=== PATIENT | female | born 1940 | race African-American/Black ===

== ENCOUNTER 2016-09-11 01:40 | Inpatient (IN) ==
[2016-09-11] MEDS ORDERED: ONDANSETRON 4 MG/2 ML VIAL IV PRN (02:31)
[2016-09-11] MEDS ORDERED: MORPHINE 2 MG/1 ML SYRINGE IV PRN (02:31)
[2016-09-11] MEDS ORDERED: BISACODYL 5 MG TABLET PO PRN (02:31)
--- NOTE | 2016-09-11 02:34 | Hospitalist History & Physical ---
Assessment and Plan (1) ESRD (end stage renal disease) on dialysis Status: Acute Current Visit: Yes (2) Diarrhea Status: Acute Current Visit: Yes (3) Metabolic encephalopathy Status: Acute Current Visit: Yes (4) Dementia Status: Acute Current Visit: Yes Qualifiers: Dementia type: unspecified type Dementia behavioral disturbance: without behavioral disturbance Qualified Code(s): F03.90 - Unspecified dementia without behavioral disturbance (5) Hypertension Status: Acute Current Visit: Yes Qualifiers: Hypertension type: essential hypertension Qualified Code(s): I10 - Essential (primary) hypertension (6) Generalized weakness Status: Acute Assessment and plan: Plan: Dialysis in the morning, consult nephrology Infectious workup for diarrhea CT brain negative for acute process in the setting of encephalopathy in addition to baseline dementia. If no improvement may consider MRI Hold antibiotics for now Current Visit: Yes History of Present Illness Chief complaint: Transfer from [facility] for dialysis, weakness, diarrhea History of present illness: Ms. Lal is a 75 year old female with end-stage renal disease on dialysis, Saturday via left upper extremity AV fistula, hypertension, dementia who is here from outside hospital with abdominal pain, diarrhea, decreased level of consciousness. Allergies Allergy/AdvReac Type Severity Reaction Status Date / Time No Known Allergies Allergy Unverified 09/11/16 02:44 Medical,Surgical,& Family Hx - Medical History Cardio: History of: Hypertension Neurology: History of: Dementia Endocrine: No history of: Diabetes Mellitus (NIDDM) Rheumatology: History of;: Gout Renal: History of: Renal Failure (End-stage renal disease on dialysis) - Surgical History Additional Surgical History: AV fistula placement - Family History Family History: Reports;: Family Hypertension - Social History Smoking Status: Never smoker Frequency of Alcohol Use: None Type of Drug Use: None Marital Status: Unknown Review of systems: A 12 point review of systems is negative except as specified in the HPI Exam - Constitutional Vitals: Period Temp Pulse Resp BP Sys/Gonzalez Pulse Ox Last 24 Hr 98.9 F 80 15 131/44 99 Exam: EXAM: CONSTITUTIONAL: Chronically ill-appearing, non toxic, NAD HEENT: NC, AT, OP benign, MAHNAZ, EOMI CV: RRR no m/g/r RESP: clear B/L, no w/r/r GI: abd soft, NT, ND, +bowel sounds INTEGUMENTARY: no lesions or rash EXTREMITIES: no c/c/e, AV fistula with good thrill and bruit NEURO: Consistent with baseline dementia PSYCH: Drowsy but arousable Results - Labs Lab Results: I have reviewed the past 24 hour labs (Outside labs reviewed) - EKG EKG shows: sinus rhythm - Diagnostic Findings Procedure: Chest x-ray: report reviewed by me, CT Abdomen and Pelvis: report reviewed by me, CT: report reviewed by me
--- NOTE | 2016-09-11 02:38 | Emergency Department Note ---
Vimal Hampton Brittany, am scribing for, and in the presence of, Beau Reynoso MD 02:09. Edgardo Hampton Charles R, MD, personally performed the services described in this documentation, ascribed by Audrey Celis in my presence, and it is both accurate and complete . Arrival - Arrival Chief Complaint: Altered Mental Status Stated Complaint: altered mental status ED Nursing Triage Note: pt family states pt has alzheimers but became more confused yesterday and just suddenly became unable to walk. generalized weakness, confusion and chronic diarrhea that she takes med for and family thought she was becoming constipated so they gave apple juice and triggered diarrhea again. Mode of Arrival: Stretcher Limitations: No Limitations Source: Patient, Family Time Seen by Provider: 09/11/16 01:54 - History of Present Illness HPI Narrative: This is a 75 y/o black female,who presents to the ED by EMS for further neurological evaluation. Her family states pt has a known Hx of dementia but yesterday she became more altered. Her family states pt has chronic diarrhea and was given "some pills by her doctor" and the diarrhea stopped. She states she started to think pt was constipated so she gave pt apple juice and the diarrhea started again. Pt's family reports they have noticed the pt to be more weak and have slurred speech. Pt's last dialysis Tx was 09/08/2016. No other complaints/pain in the ED at this time. Pt has a PMHx of dementia, HTN, renal failure and dialysis. Pt denies a surgical Hx. Pt denies a family medical Hx. Pt denies a social Hx. Onset (ago): day(s) (Started yesterday) Consistency: constant Severity: moderate Review of System - Review of System 12 point system: reviewed and no additional remarkable complaints except as stated - Review of System Constitutional: Present: weakness (Generalized weakness) Gastrointestinal: Present: diarrhea Neurological: Present: other (AMS, slurred speech) Medical,Surgical,& Family Hx - Medical History Cardio: History of: Hypertension Neurology: History of: Dementia Rheumatology: History of;: Gout Renal: History of: Renal Failure - Social History Smoking Status: Never smoker Frequency of Alcohol Use: None Type of Drug Use: None Exam Vital Signs: Vital Signs Temperature 98.9 F 09/11/16 01:45 Pulse Rate 80 09/11/16 01:45 Respiratory Rate 15 09/11/16 01:45 Blood Pressure 131/44 09/11/16 01:45 O2 Sat by Pulse Oximetry 99 09/11/16 01:45 - General General appearance: in no apparent distress, lethargic - Head Head exam: Present: atraumatic, normocephalic, normal inspection - Eye Eye exam: Present: other (Sunken orbits) - ENT ENT exam: Present: mucous membranes dry, TM's normal bilaterally, normal external ear exam - Neck Neck exam: Present: normal inspection, full ROM, trachea midline. Absent: tenderness, meningismus, lymphadenopathy, thyromegaly - Chest Chest inspection: Present: normal inspection, symmetric chest wall rise. Absent : tenderness, rash, abscess - Respiratory Respiratory exam: Present: rhonchi (Bilateral rhonchi) - Cardiovascular Cardiovascular exam: Present: regular rate, normal rhythm, murmur (2 out of 6 slight murmur ) - Abdominal Exam Abdominal exam: Present: soft, normal bowel sounds. Absent: distention, tenderness, guarding, rebound, rigidity - Rectal Exam Rectal exam: Present: deferred - Extremities Exam Extremities exam: Present: normal capillary refill, pedal edema (+2 pitting edema) - Back Exam Back exam: Present: normal inspection, full ROM. Absent: tenderness, muscle spasm, rashes - Neurological Exam Neurological exam: Present: oriented X3, CN II-XII intact. Absent: motor sensory deficit - Psychiatric Psychiatric exam: Present: normal affect, normal mood. Absent: depressed, agitated, anxious, flat affect, manic - Skin Skin exam: Present: warm, dry, intact, normal color. Absent: rash, cyanosis, diaphoresis, erythema, pallor, mottled Course - Consultations Consultation #1: Hospitalist will admit patient Time: 02:37 Results - Labs Lab Results: I have reviewed the patients labs Labs: All results reviewed from previous facility Disposition Clinical Impression: Altered mental status, Generalized weakness, ESRD (end stage renal disease) on dialysis, Lower extremity weakness, Chronic diarrhea Case discussed with: patient, patient's family Disposition: Still a Patient Condition: Stable Time of Disposition: 02:38
[2016-09-11] MEDS: HEPARIN 5,000 UNIT/1 ML VIAL SUBCUT SCH ×3 (04:23→20:24)
[2016-09-11 05:47] LABS: Basophils % 0.2 % (0.0-0.8); Hematocrit 29.6 VOL% (35.7-47.0); Hemoglobin 9.3 GM/DL (12.0-16.0); Immature Granulocytes % 0.9 %; Immature Granulocytes Absolute 0.11 #; Lymphocytes # 1.3 10*3/uL (1.4-4.0); Lymphocytes % 10.9 % (21.3-54.2); Mean Corpuscular HGB Conc 31.4 GM/DL (32-36); Mean Corpuscular Hemoglobin 34 PG (27-34); Mean Corpuscular Volume 107.2 FL (87-102); Mean Platelet Volume 11.5 FL (9.6-12.0); Monocytes # 1.1 10*3/uL (0.11-0.8); Monocytes % 8.8 % (1.7-12.7); Neutrophils # 9.5 10*3/uL (1.4-7.4); Neutrophils % 79.2 % (38.7-73.9); Platelet Count 141 T/CUMM (130-400); Red Blood Count 2.76 MC/CUMM (3.8-5.5); Red Cell Distribution Width 14.4 % (9.3-17.3)
[2016-09-11 06:30] LABS: Alanine Aminotransferase < 9 U/L (13-56); Albumin 2.5 G/DL (3.4-5.0); Alkaline Phosphatase 66 U/L (45-117); Aspartate Amino Transferase 15 U/L (0-37); Blood Urea Nitrogen 59 MG/DL (7-18); Calcium 9.7 MG/DL (8.5-10.1); Glucose 120 MG/DL (74-106); Magnesium 3.7 MG/DL (1.8-2.4); Osmolality,Calculated 300.1 MOS/KG (273-304); Potassium 5.3 MMOL/L (3.5-5.1); Sodium 142 MMOL/L (136-145); Thyroid Stimulating Hormone 0.857 uIU/ml (0.358-3.74); Total Protein 6.1 G/DL (6.4-8.3)
[2016-09-11] MEDS: DESITIN 4OZ/NYSTATIN 15 GRAM MIXTURE PASTE TOP SCH ×2 (08:05→20:24)
[2016-09-11] MEDS: PANTOPRAZOLE 40 MG TABLET PO SCH (08:05)
[2016-09-11 08:39] LABS: Folate 6.6 NG/ML (5.4-24.0)
[2016-09-11] MEDS ORDERED: LIDOCAINE/PRILOCAINE CREAM 5 GM TUBE TOP ONE ×2 (09:35→09:44)
[2016-09-11] MEDS ORDERED: IRON SUCROSE 100 MG/5 ML VIAL IV SCH (12:00)
--- NOTE | 2016-09-11 12:37 | Dialysis Note ---
Dialysis Note - Dialysis Note Ms. Lal is seen during her hemodialysis. She is not responsive. Her eyes are open but she does not interact at all. Blood pressure is stable. This is different than her usual mental status which is fairly quiet but able to answer simple questions.
--- NOTE | 2016-09-11 14:06 | Nephrology Consult Note ---
History of Present Illness Chief complaint: End-stage renal disease in a patient admitted for inability to ambulate History of present illness: Ms. Lal is a 75 year old female with end-stage renal disease who dialyzes on a Saturday basis and [facility]. The patient was brought to the outside hospital last night when she complained of some abdominal pain. Patient also had weakness in her legs and inability to ambulate. The history is taken from the chart and from the patient's daughter as the patient is unable to contribute to the history due to her poor mental health. Patient has known dementia and is on multiple medications for Alzheimer's. The patient apparently had been having problems with diarrhea chronically for about a month. This resolved about 2 months ago after she saw GI specialist and was started on some medications for this. Patient then had some abdominal pain yesterday and was given some medications to try and help with a bowel movement which apparently resulted in her developing diarrhea again. Review of systems unable be obtained due to patient's medical condition PE: General: in no acute distress Eyes: Pupils are round and reactive, conjunctivae are clear ENT: Nose is clear, O/P is benign Neck: Supple, no thyromegaly Lymphatics: No cervical, supraclavicular or axillary adenopathy Heart: Regular rate and rhythm, no edema Lungs: Clear to auscultation anteriorly, chest expansion symmetric Abdomen: Soft, normoactive bowel sounds, no hepatomegaly Musculoskeletal: No joint erythema or effusions or joint asymmetry Skin: Normal turgor, normal hydration, no rash Neuro/Psych: Alert and cooperative with poor insight Home Medications Medication Instructions Recorded Confirmed Type Calcium Carbonate [Calcium] 1,250 mg PO TID 09/11/16 09/11/16 History Diphenoxylate/Atrop 2.5-0.025 1 tablet PO Q6H PRN 09/11/16 09/11/16 History [Lomotil Tab] Donepezil [Aricept] 10 mg PO QPM 09/11/16 09/11/16 History Lisinopril 5 mg PO DAILY 09/11/16 09/11/16 History Megestrol Acetate [Megace] 400 mg PO DAILY 09/11/16 09/11/16 History Memantine HCl [Namenda XR] 14 mg PO DAILY 09/11/16 09/11/16 History amLODIPine [Norvasc] 10 mg PO DAILY 09/11/16 09/11/16 History Allergies Allergy/AdvReac Type Severity Reaction Status Date / Time No Known Allergies Allergy Unverified 09/11/16 02:44 Medical,Surgical,& Family Hx - Medical History Cardio: History of: Hypertension Neurology: History of: Dementia, TIA Endocrine: No history of: Diabetes Mellitus (NIDDM) Rheumatology: History of;: Gout Renal: History of: Renal Failure (End-stage renal disease on dialysis) Musculoskeletal: History of: Musculoskeletal Problems (Bedfast) - Surgical History Neurologic Surgeries: Patient denies: Neurologic Surgery - Family History Family History: Reports;: Family Hypertension, Additional Family History ( Family kidney disease) - Social History Smoking Status: Never smoker Frequency of Alcohol Use: None Type of Drug Use: None Exam - Vital Signs Vital signs: Period Temp Pulse Resp BP Sys/Gonzalez Pulse Ox Last 24 Hr 97.0 F-98.9 F 65-80 15-24 114-131/44-50 96-99 Results - Labs CBC & BMP: 09/11/16 05:13 09/11/16 05:13 Assessment and Plan (1) ESRD (end stage renal disease) on dialysis Status: Acute Assessment and plan: We will continue hemodialysis support Current Visit: Yes (2) Anemia Status: Acute Assessment and plan: Patient's hematocrits around 29% Current Visit: Yes (3) Dementia Status: Acute Current Visit: Yes Qualifiers: Dementia type: unspecified type Dementia behavioral disturbance: without behavioral disturbance Qualified Code(s): F03.90 - Unspecified dementia without behavioral disturbance (4) Diarrhea Status: Acute Assessment and plan: Patient had a CT scan of the abdomen that showed cholelithiasis and some diverticula, there was also noted some small right pleural effusion and small consolidation of the right lower lobe of the lung Current Visit: Yes (5) Generalized weakness Status: Acute Current Visit: Yes (6) Hypertension Status: Acute Current Visit: Yes Qualifiers: Hypertension type: essential hypertension Qualified Code(s): I10 - Essential (primary) hypertension (7) Lower extremity weakness Status: Acute Assessment and plan: Patient had a CT scan of her head which was unremarkable for any acute pathology , she does have diffuse changes consistent with chronic disease Current Visit: Yes (8) Hyperkalemia Status: Acute Current Visit: Yes
[2016-09-11] MEDS: CYANOCOBALAMIN 1000 MCG/1 ML VIAL SUBCUT SCH (14:43)
[2016-09-11] MEDS: CALCIUM CARBONATE CHEW 500 MG TABLET PO SCH ×2 (14:43→20:24)
[2016-09-11] MEDS: ACETAMINOPHEN 325 MG TABLET PO PRN (22:20)
[2016-09-12] MEDS: HEPARIN 5,000 UNIT/1 ML VIAL SUBCUT SCH ×3 (04:44→18:07)
[2016-09-12] MEDS: ACETAMINOPHEN 325 MG TABLET PO PRN (04:58)
[2016-09-12 05:11] LABS: Basophils % 0.2 % (0.0-0.8); Eosinophils % 0.4 % (0.00-10.9); Hematocrit 29.4 VOL% (35.7-47.0); Hemoglobin 9.3 GM/DL (12.0-16.0); Immature Granulocytes % 0.7 %; Immature Granulocytes Absolute 0.07 #; Lymphocytes # 1.4 10*3/uL (1.4-4.0); Lymphocytes % 14.5 % (21.3-54.2); Mean Corpuscular HGB Conc 31.6 GM/DL (32-36); Mean Corpuscular Hemoglobin 34 PG (27-34); Mean Corpuscular Volume 106.5 FL (87-102); Mean Platelet Volume 11.7 FL (9.6-12.0); Monocytes # 0.9 10*3/uL (0.11-0.8); Monocytes % 9.1 % (1.7-12.7); Neutrophils # 7.1 10*3/uL (1.4-7.4); Neutrophils % 75.1 % (38.7-73.9); Platelet Count 110 T/CUMM (130-400); Red Blood Count 2.76 MC/CUMM (3.8-5.5); Red Cell Distribution Width 14.6 % (9.3-17.3); White Blood Count 9.4 T/CUMM (4-12)
[2016-09-12 05:33] LABS: Calcium 9.1 MG/DL (8.5-10.1); Magnesium 3.1 MG/DL (1.8-2.4); Osmolality,Calculated 279.8 MOS/KG (273-304); Potassium 4.6 MMOL/L (3.5-5.1)
[2016-09-12] MEDS: CYANOCOBALAMIN 1000 MCG/1 ML VIAL SUBCUT SCH (09:24)
[2016-09-12] MEDS: MEGESTROL 400 MG/10 ML UDCUP PO SCH (09:25)
[2016-09-12] MEDS: DESITIN 4OZ/NYSTATIN 15 GRAM MIXTURE PASTE TOP SCH ×2 (09:25→22:15)
[2016-09-12] MEDS: PANTOPRAZOLE 40 MG TABLET PO SCH (09:25)
[2016-09-12] MEDS: CALCIUM CARBONATE CHEW 500 MG TABLET PO SCH ×3 (09:25→22:15)
--- NOTE | 2016-09-12 10:27 | XRay Report ---
Exam: XR chest 1V portable Date: 09/12/2016 9:59 AM Indication: Shortness of breath Comparison: 01/13/2013 Technical: AP portable Findings: Mild prominence the cardiac silhouette. There is a normal right IJ dialysis catheter. ASVD is present in the aorta. Low volume right effusion and interstitial infiltrate present in the LAD change in the right base. No pneumothorax. Small calcified nodular densities are present in the upper chest regions bilaterally. Impression: 1. Right lower lobe interstitial pneumonic infiltrate and/or low volume effusions. A component of asymmetric pulmonary edema would also be considered in the differential 2. Removal of dialysis catheter. 3. No pneumothorax PROCEDURE INTERPRETED AT [facility] DEPARTMENT OF RADIOLOGY Final Report Signed by: Dr. Savage Hdez
[2016-09-12] MEDS ORDERED: AZITHROMYCIN INJ 500 MG in SODIUM CHLORIDE 0.9% 250 ML IV ONE ×2 (12:30→14:00)
[2016-09-12] MEDS: cefTRIAXone 1,000 MG in SODIUM CHLORIDE 0.9% 100 ML IV SCH (13:01)
--- NOTE | 2016-09-12 13:14 | Nephrology Progress Note ---
Nephrology - PN: Subj Interval history: Patient is feeling better today. She denies shortness of breath. Review of systems GI she denies nausea or vomiting Physical exam general the patient chronically ill-appearing, she raised her left leg off the bed about 2 feet she raised her right foot about 4 inches off of the bed Assessment/plan 1. End-stage renal disease-we will continue hemodialysis support 2. Dementia 3. Lower extremity weakness-this seems to be improving, patient's to have an MRI of the brain today 4. Probable pneumonia-I agree with IV antibiotics, the patient had a temperature to 101.5 yesterday, with her decreased brain reserve this infectious process may be responsible for her current decline in functional status. Exam (PN)-Nephrology - Vital Signs Vital signs: Period Temp Pulse Resp BP Sys/Gonzalez Pulse Ox Last 24 Hr 98.7 F-101.3 F 62-79 17-18 100-120/47-61 91-96 - Lab 09/12/16 04:55 09/12/16 04:55 Most recent lab results Calcium 9.1 MG/DL (8.5-10.1) 09/12/16 04:55 Magnesium 3.1 MG/DL (1.8-2.4) H 09/12/16 04:55 Assessment and Plan (1) ESRD (end stage renal disease) on dialysis Status: Acute Assessment and plan: We will continue hemodialysis support Current Visit: Yes (2) Anemia Status: Acute Assessment and plan: Patient's hematocrits around 29% Current Visit: Yes (3) Dementia Status: Acute Current Visit: Yes Qualifiers: Dementia type: unspecified type Dementia behavioral disturbance: without behavioral disturbance Qualified Code(s): F03.90 - Unspecified dementia without behavioral disturbance (4) Diarrhea Status: Acute Assessment and plan: Patient had a CT scan of the abdomen that showed cholelithiasis and some diverticula, there was also noted some small right pleural effusion and small consolidation of the right lower lobe of the lung Current Visit: Yes (5) Generalized weakness Status: Acute Current Visit: Yes (6) Hypertension Status: Acute Current Visit: Yes Qualifiers: Hypertension type: essential hypertension Qualified Code(s): I10 - Essential (primary) hypertension (7) Lower extremity weakness Status: Acute Assessment and plan: Patient had a CT scan of her head which was unremarkable for any acute pathology , she does have diffuse changes consistent with chronic disease Current Visit: Yes (8) Hyperkalemia Status: Acute Current Visit: Yes
--- NOTE | 2016-09-12 15:05 | Magnetic Resonance Report ---
Exam: MR head/brain wo con Date: 09/12/2016 2:36 PM Comparison: CT brain 09/10/2016 Indication: Alteration of consciousness, weakness, dementia Technique:[Multiple acquisitions were obtained including sagittal T1, coronal T2,] and axial ADC, diffusion, FLAIR, T2, GRE, and T1 scans without contrast only. Scans were obtained on an open 1.2 Michelle magnet. Findings: The ventricles are minimally dilated with no midline displacement. Partially empty sella. The cerebellar tonsils are normal in their location. Diffuse cerebral and cerebellar atrophy with diffuse FLAIR/T2 hyperintensities. Restricted diffusion in the posterior limb of the left internal capsule extending into the left centrum semiovale location. No evidence of hemorrhage, mass, or extracerebral collection. No acute findings in the paranasal sinuses, orbits, temporal bones, and ch[place] of Dawn. Impression: Acute ischemic infarction in the posterior limb of the left internal capsule extending into the left centrum semiovale ovale. Extensive cerebral and cerebellar atrophy and microvascular disease. T2 hyperintensities can also be associated with demyelinating disease, vasculitis, viral illness, etc. Partially empty sella. PROCEDURE INTERPRETED AT [facility] DEPARTMENT OF RADIOLOGY Final Report Signed by: Dr. Laurel Aleman
--- NOTE | 2016-09-12 17:38 | Hospitalist Progress Note ---
Assessment and Plan (1) Altered mental status Status: Acute Assessment and plan: Improving Current Visit: Yes (2) Generalized weakness Status: Acute Current Visit: Yes (3) ESRD (end stage renal disease) on dialysis Status: Acute Current Visit: Yes (4) Lower extremity weakness Status: Acute Assessment and plan: MRI with acute stroke Carotid dopplers, echo, lipid panel Consult neurology History of strokes several years ago Current Visit: Yes (5) Hypertension Status: Acute Assessment and plan: Controlled Current Visit: Yes Qualifiers: Hypertension type: essential hypertension Qualified Code(s): I10 - Essential (primary) hypertension (6) Macrocytic anemia Status: Acute Assessment and plan: B12 low normal, replacing Current Visit: Yes (7) Pneumonia Status: Acute Assessment and plan: CXR with pna Rocephin and Azithromycin Current Visit: Yes Hospitalist: Subjective Interval history: No acute events overnight. Patient much more awake and alert today. Febrile overnight. MRI did show an acute infarct. Exam - Constitutional Vitals: Period Temp Pulse Resp BP Sys/Gonzalez Pulse Ox Last 24 Hr 98.7 F-101.3 F 61-79 17-18 102-136/47-62 91-98 General appearance: under weight, over weight - Head Head exam: Present: normocephalic, atraumatic - Eye Eye exam: Present: EOMI Pupils: Present: MAHNAZ - ENT ENT exam: Present: normal exam - Neck Neck exam: Present: normal inspection - Respiratory Respiratory exam: Present: clear to auscultation bilaterally. Absent: wheezes - Cardiovascular Cardiovascular exam: Present: regular rate and rhythm - GI/Abdominal GI/Abdominal exam: Present: normal bowel sounds, soft. Absent: tenderness, rebound - Extremities Exam Extremities exam: Present: normal inspection - Back Exam Back exam: Present: normal inspection - Neurological Exam Neurological exam: Present: alert, oriented X3 - Psychiatric Psychiatric exam: Present: normal affect, normal mood - Skin Skin exam: Present: warm, intact Results - Labs CBC & BMP: 09/12/16 04:55 09/12/16 04:55
--- NOTE | 2016-09-12 21:31 | Ultrasound Report ---
Exam: Carotid ultrasound Date: 09/12/2016 Comparison: 01/19/2013 Technique: Duplex scans of the carotid and vertebral arteries using B-mode/Bassett scale imaging and Doppler spectral analysis and color flow. Reason: CVA Findings: The right ICA measures 6.6 mm in diameter and the left ICA measures 5.2 mm in diameter. Color-flow documented in the visualized arteries. The peak systolic velocities are as follows: Right CCA: 135.1 cm/s Right ICA: 72.7 cm/s Right ECA: 92.7 cm/s Left CCA: 148.5 cm/s Left ICA: 45.7 cm/s Left ECA: 65.3 cm/s The peak systolic ICA/CCA velocity ratios are as follows: 0.5 on the right and 0.3 on the left. Antegrade flow is present in both vertebral arteries. Impression:[Less than 50% stenosis in both internal carotid arteries with heterogeneous plaque formation. Antegrade flow in both vertebral arteries.] The Society of Radiologists in Ultrasound consensus conference criteria was used. The Ultrasound images were captured and stored. PROCEDURE INTERPRETED AT [facility] DEPARTMENT OF RADIOLOGY Final Report Signed by: Dr. Laurel Aleman
[2016-09-13] MEDS: HEPARIN 5,000 UNIT/1 ML VIAL SUBCUT SCH ×3 (03:13→18:15)
[2016-09-13 06:05] LABS: Risk Ratio 6.11; VLDL CHOLESTEROL 25.2 MG/DL
[2016-09-13] MEDS: CALCIUM CARBONATE CHEW 500 MG TABLET PO SCH ×3 (08:36→21:56)
--- NOTE | 2016-09-13 08:36 | Neurology Consult Note ---
History of Present Illness History of present illness: 75 years old right-handed -[place] lady with past medical history significant for end-stage renal disease on hemodialysis history of left AV fistula, hypertension, dementia who lives at home with her daughter admitted to the hospital with acute onset of change in mental status, generalized weakness and some speech difficulties. Daughter reported that it started Saturday morning and she noticed that her mom was just not being right. She could not give me any details. Daughter could not figure it out but that she had any focal weakness are not but she just thought that she had generalized weakness. She could not move or do anything. At the baseline she does require help in walking but does sound like a min assist. At the present time she is requiring mod to max assist. She can swallow though. MRI of the brain reveals subacute to acute left posterior limb internal capsule and centrum semiovale infarct. Carotid ultrasound and lipid panel are all within normal limits. Home Medications Medication Instructions Recorded Confirmed Type Calcium Carbonate [Calcium] 1,250 mg PO TID 09/11/16 09/11/16 History Diphenoxylate/Atrop 2.5-0.025 1 tablet PO Q6H PRN 09/11/16 09/11/16 History [Lomotil Tab] Donepezil [Aricept] 10 mg PO QPM 09/11/16 09/11/16 History Lisinopril 5 mg PO DAILY 09/11/16 09/11/16 History Megestrol Acetate [Megace] 400 mg PO DAILY 09/11/16 09/11/16 History Memantine HCl [Namenda XR] 14 mg PO DAILY 09/11/16 09/11/16 History amLODIPine [Norvasc] 10 mg PO DAILY 09/11/16 09/11/16 History Allergies Allergy/AdvReac Type Severity Reaction Status Date / Time No Known Allergies Allergy Unverified 09/11/16 02:44 12 point system: reviewed and no additional remarkable complaints except as stated Medical,Surgical,& Family Hx - Medical History Cardio: History of: Hypertension Neurology: History of: Dementia, TIA Endocrine: No history of: Diabetes Mellitus (NIDDM) Rheumatology: History of;: Gout Renal: History of: Renal Failure (End-stage renal disease on dialysis) Musculoskeletal: History of: Musculoskeletal Problems (Bedfast) - Surgical History Neurologic Surgeries: Patient denies: Neurologic Surgery - Family History Family History: Reports;: Family Hypertension, Additional Family History ( Family kidney disease) - Social History Smoking Status: Never smoker Frequency of Alcohol Use: None Type of Drug Use: None Exam - Constitutional Vitals: Period Temp Pulse Resp BP Sys/Gonzalez Pulse Ox Last 24 Hr 97.4 F-99.7 F 61-75 18-20 113-136/47-62 95-98 Exam: GENERAL: Patient is in no acute distress. NECK: Neck is supple. There is no JVD. No carotid bruits present. No thyroid masses. CVS: First and second heart sounds are normal. There is no S3 present. Regular rate and rhythm. RESPIRATORY: Lungs are clear to auscultation without any rales or rhonchi. ABDOMEN: Soft and non-tender. Bowel sounds are present. There is no hepatosplenomegaly. EXT: There is no palpable edema. Peripheral pulses are present. Skin: No rashes Central Nervous system: General: Alert, awake Speech: Fluent but some dysarthria Comprehension: Intact and normal Facial expressions: Normal Cranial Nerves: CN1/Olfactory: Normal CN II/ Optic: Normal, Visual Kim unreliable CN III, and : MAHNAZ & EOMI CN V: Normal & intact CN VII: face is symmetric CNVIII: Normal CN XI/X/XI/XII: Intact and Normal Motor: Bulk and Tone is normal. Strength in the right 2-3/5 Strength in the left 3-4/5 Sensory: Unreliable Reflexes: 1+ and symmetrical Cerebellar function: Cannot be tested Toes: Equivocal Gait: Not tested at this time Results - Labs CBC & BMP: 09/12/16 04:55 09/12/16 04:55 Assessment and Plan (1) Acute CVA (cerebrovascular accident) Status: Acute Assessment and plan: Start baby aspirin a day. Patient is already on heparin which she gets during dialysis Echocardiogram Agree with B12 replacement Add Lipitor Consult TMR Current Visit: Yes
[2016-09-13] MEDS: MEGESTROL 400 MG/10 ML UDCUP PO SCH (08:37)
[2016-09-13] MEDS: CYANOCOBALAMIN 1000 MCG/1 ML VIAL SUBCUT SCH (08:37)
[2016-09-13] MEDS: DESITIN 4OZ/NYSTATIN 15 GRAM MIXTURE PASTE TOP SCH (08:37)
[2016-09-13] MEDS: PANTOPRAZOLE 40 MG TABLET PO SCH (08:37)
--- NOTE | 2016-09-13 09:43 | Dialysis Note ---
Dialysis Note - Dialysis Note Ms. Lal is seen during her hemodialysis. She seems better today than she was 2 days ago she is spontaneous and interactive makes good eye contact. She is tolerating hemodialysis well.
[2016-09-13] MEDS ORDERED: HEPARIN 10,000 UNIT/10 ML VIAL IV PRN (12:00)
--- NOTE | 2016-09-13 12:23 | Nephrology Progress Note ---
Nephrology - PN: Subj Interval history: Patient seen on hemodialysis, she is tolerating this well will continue her treatment unchanged. Patient has no complaints. Physical exam general the patient is chronically ill-appearing, she is able to bend her right leg better than she did yesterday she also moves her right upper extremity but apparently this is less mobile and weaker than it had been per the patient's daughter Assessment/plan 1. Lower extremity weakness as well as some right sided upper extremity weakness-the patient had a acute stroke by her MRI done yesterday 2. Fever-we will continue IV antibiotics 3. End-stage renal disease we will continue hemodialysis support Patient is to be transferred to [facility]. Exam (PN)-Nephrology - Vital Signs Vital signs: Period Temp Pulse Resp BP Sys/Gonzalez Pulse Ox Last 24 Hr 97.4 F-99.7 F 61-75 18-20 106-136/50-62 95-98 - Lab 09/12/16 04:55 09/12/16 04:55 Most recent lab results Calcium 9.1 MG/DL (8.5-10.1) 09/12/16 04:55 Magnesium 3.1 MG/DL (1.8-2.4) H 09/12/16 04:55 Assessment and Plan (1) ESRD (end stage renal disease) on dialysis Status: Acute Assessment and plan: We will continue hemodialysis support Current Visit: Yes (2) Anemia Status: Acute Assessment and plan: Patient's hematocrits around 29% Current Visit: Yes (3) Dementia Status: Acute Current Visit: Yes Qualifiers: Dementia type: unspecified type Dementia behavioral disturbance: without behavioral disturbance Qualified Code(s): F03.90 - Unspecified dementia without behavioral disturbance (4) Diarrhea Status: Acute Assessment and plan: Patient had a CT scan of the abdomen that showed cholelithiasis and some diverticula, there was also noted some small right pleural effusion and small consolidation of the right lower lobe of the lung Current Visit: Yes (5) Generalized weakness Status: Acute Current Visit: Yes (6) Hypertension Status: Acute Current Visit: Yes Qualifiers: Hypertension type: essential hypertension Qualified Code(s): I10 - Essential (primary) hypertension (7) Lower extremity weakness Status: Acute Assessment and plan: Patient had a CT scan of her head which was unremarkable for any acute pathology , she does have diffuse changes consistent with chronic disease Current Visit: Yes (8) Hyperkalemia Status: Acute Current Visit: Yes
[2016-09-13] MEDS: cefTRIAXone 1,000 MG in SODIUM CHLORIDE 0.9% 100 ML IV SCH (13:37)
[2016-09-13] MEDS: AZITHROMYCIN INJ 250 MG in SODIUM CHLORIDE 0.9% 250 ML IV SCH (14:48)
--- NOTE | 2016-09-13 15:19 | ECHO Report ---
Maria Del Carmen Lal Exam Date: 09/13/2016 09:43 Referring Physician: Technologist: Idalia Palacios Age: 75 Ht (in): 67 Wt (lb): 126 Gender: F Exam Location: [facility] Echo Indications: pneumonia, hyperkalemia, ESRD, acute stroke, altered mental status, HTN BP: 120 / 60 HR: 68 Rhythm: Sinus arrthymia Technical Quality: Fair IMPRESSIONS EF 55 %. Mild concentric left ventricular hypertrophy . Grade I/IV diastolic dysfunction (abnormal relaxation filling pattern), normal to mildly elevated filling pressures. Mildly increased right ventricular size. Moderately increased right atrial size. Moderately increased left atrial size. Mildly thickened mitral valve. Trace mitral valve regurgitation. Mild aortic valve stenosis. Peak gradient 35mmHG, mean gradient 20 mmHg, KEVIN 1.4 cm. Trace to mild aortic valve regurgitation. [id number]-[id number] tricuspid valve regurgitation. ICA72-76 mmHg. Trace pulmonary valve regurgitation. No pericardial effusion. Normal size aortic root and proximal ascending aorta. MEASUREMENTS (Male / Female) Normal Values 2D ECHO LV Diastolic Diameter PLAX 2.9 cm 4.2 - 5.9 / 3.9 - 5.3 cm LV Systolic Diameter PLAX 1.8 cm LV Fractional Shortening PLAX 38.4 % IVS Diastolic Thickness 1.5 cm 0.6 - 1.0 / 0.6 - 0.9 cm LVPW Diastolic Thickness 1.1 cm 0.6 - 1.0 / 0.6 - 0.9 cm RV Internal Dim ED PLAX 2.3 cm Aortic Root Diameter 2.7 cm LA Systolic Diameter LX 3.1 cm 3.0 - 4.0 / 2.7 - 3.8 cm DOPPLER TR Peak Velocity 266.0 cm/s TR Peak Gradient 28.3 mmHg FINDINGS Left Ventricle EF 55 %.mild concentric left ventricular hypertrophy . Grade I/IV diastolic dysfunction (abnormal relaxation filling pattern), normal to mildly elevated filling pressures. Right Ventricle Mildly increased right ventricular size. Right Atrium Moderately increased right atrial size. Left Atrium Moderately increased left atrial size. Mitral Valve Mildly thickened mitral valve. Trace mitral valve regurgitation. Aortic Valve Mild aortic valve stenosis. Peak gradient 35mmHG, mean gradient 20 mmHg, KEVIN 1.4 cm. Trace to mild aortic valve regurgitation. Tricuspid Valve Morphologically normal tricuspid valve. Fejc-qx-ivhdmnps tricuspid valve regurgitation. HKG44-71 mmHg. Pulmonic Valve Pulmonic valve not well visualized. Trace pulmonary valve regurgitation. Pericardium No pericardial effusion. Aorta Normal size aortic root and proximal ascending aorta. Aryan Ugarte (Electronically Signed) Final Date: 13 September 2016 15:18
--- NOTE | 2016-09-13 16:38 | Hospitalist Progress Note ---
Assessment and Plan (1) Altered mental status Status: Acute Assessment and plan: Improving Current Visit: Yes (2) Generalized weakness Status: Acute Current Visit: Yes (3) ESRD (end stage renal disease) on dialysis Status: Acute Current Visit: Yes (4) Lower extremity weakness Status: Acute Assessment and plan: MRI with acute stroke Carotid dopplers and lipid panel ok neurology evaluated History of strokes several years ago [facility] tomorrow Current Visit: Yes (5) Hypertension Status: Acute Assessment and plan: Controlled Current Visit: Yes Qualifiers: Hypertension type: essential hypertension Qualified Code(s): I10 - Essential (primary) hypertension (6) Macrocytic anemia Status: Acute Assessment and plan: B12 low normal, replacing Current Visit: Yes (7) Pneumonia Status: Acute Assessment and plan: CXR with pna Rocephin and Azithromycin Current Visit: Yes Hospitalist: Subjective Interval history: No acute events overnight. Patient awake and alert this morning. Probable discharge to [facility] tomorrow. Exam - Constitutional Vitals: Period Temp Pulse Resp BP Sys/Gonzalez Pulse Ox Last 24 Hr 97.4 F-99.7 F 68-82 18-20 106-132/50-61 95-98 General appearance: under weight - Head Head exam: Present: normocephalic, atraumatic - Eye Eye exam: Present: EOMI Pupils: Present: MAHNAZ - ENT ENT exam: Present: normal exam - Neck Neck exam: Present: normal inspection - Respiratory Respiratory exam: Present: clear to auscultation bilaterally. Absent: rhonchi, wheezes - Cardiovascular Cardiovascular exam: Present: regular rate and rhythm - GI/Abdominal GI/Abdominal exam: Present: normal bowel sounds, soft. Absent: tenderness, rebound - Extremities Exam Extremities exam: Present: normal inspection - Back Exam Back exam: Present: normal inspection - Neurological Exam Neurological exam: Present: alert, oriented X3 - Psychiatric Psychiatric exam: Present: normal affect, normal mood - Skin Skin exam: Present: warm, intact Results - Labs CBC & BMP: 09/12/16 04:55 09/12/16 04:55
[2016-09-14] MEDS: DESITIN 4OZ/NYSTATIN 15 GRAM MIXTURE PASTE TOP SCH ×2 (03:10→08:27)
[2016-09-14] MEDS: HEPARIN 5,000 UNIT/1 ML VIAL SUBCUT SCH ×2 (03:10→10:08)
[2016-09-14] MEDS: PANTOPRAZOLE 40 MG TABLET PO SCH (08:27)
[2016-09-14] MEDS: MEGESTROL 400 MG/10 ML UDCUP PO SCH (08:27)
[2016-09-14] MEDS: CALCIUM CARBONATE CHEW 500 MG TABLET PO SCH (08:27)
[2016-09-14] MEDS: CYANOCOBALAMIN 1000 MCG/1 ML VIAL SUBCUT SCH (08:27)
--- NOTE | 2016-09-14 10:04 | Discharge Summary ---
<Ana Luisa Famda - Last Filed: 09/14/16 09:31> Hospital Course - Hospital Course Hospital Course: This is a chronically ill 75-year-old female that presented to the ED at [facility] via EMS as a lateral transfer from [facility] in [place] on September 11, 2016 for further evaluation of altered mental status. The patient has a very complex medical history significant for: Chronic diarrhea, end-stage renal disease, Alzheimer's disease, dementia, gouty arthritis, cerebrovascular accident, and anemia. Surgical history significant for arteriovenous fistula placement. The family reported the onset of symptoms 1 day prior to presentation. They confirm that the patient's baseline is confused however her confusion increased and she became unable to walk. Initially, they suspected that the patient was becoming constipated so they gave the patient some apple juice which in turn aggravated her diarrhea. They also reported that the patient's speech became slurred. They became alarmed and called EMS for further evaluation and subsequently transported to [facility] for further evaluation. At the time of ED presentation, was noted to be lethargic. Labs were obtained; complete blood count reported white blood cell count of 12.0, hemoglobin 9.3, hematocrit 29.6, and platelet count 141. Complete metabolic profile reported a sodium at 142, potassium 5.3, chloride 10, carbon dioxide 23, BUN 59, creatinine 8.70, and glucose at 120. Thyroid panel reported a free T4 at 1.[address] head was performed prior to presentation at [facility] in car which reported no acute intracranial abnormalities, however chronic small vessel ischemic disease and/or age-related changes were statistically most likely. CT abdomen and pelvis was also performed prior to ED presentation at [place] which was significant for cholelithiasis in the presence of diverticula, in addition the patient was also noted to have a small right pleural effusion and small consolidation of the right lower lobe of the lung. The patient was subsequently admitted to the hospitalist services for continuation of care. The patient was admitted. Neurology and nephrology consultations were requested. The patient was in evaluated by nephrology and hemodialysis support was continued. The patient was evaluated by neurology. Carotid Doppler studies were ordered which was significant for less than 50% stenosis in both internal carotid arteries with heterogenous plaque formation and antegrade flow in both vertebral arteries. Echocardiogram reported an estimated ejection fraction of 55%, mild concentric left ventricular hypertrophy, grade 1/4 diastolic dysfunction and normal to mildly elevated filling pressures. On September 12, 2016, the patient underwent MRI of the brain which reported an acute ischemic infarction in the posterior limb of the right external capsule extending into the left centrum semi-ovale, extensive cerebral and cerebellar atrophy and microvascular disease and the presence of T2 hyperintensities were noted. During admission patient worked with physical therapy. The patient's condition gradually improved. She has experienced no significant overnight events. Today, we feel that she is indeed appropriate for discharge to [facility] for continuation of care. Discharge Plan - Discharge Data Disposition: Disch To Home/Self Care - Discharge Medications New Cyanocobalamin Inj [Vitamin B12 Inj] 1,000 mcg SUBCUT DAILY vial Azithromycin Tab [Zithromax Tab] 250 mg PO DAILY #4 tablet Continue Donepezil [Aricept] 10 mg PO QPM Diphenoxylate/Atrop 2.5-0.025 [Lomotil Tab] 1 tablet PO Q6H PRN PRN Reason: Diarrhea Calcium Carbonate [Calcium] 1,250 mg PO TID Megestrol Acetate [Megace] 400 mg PO DAILY Memantine HCl [Namenda XR] 14 mg PO DAILY Discontinued amLODIPine [Norvasc] 10 mg PO DAILY Lisinopril 5 mg PO DAILY - Follow Up or Referral - Forms/Instructions Exam - Constitutional Vitals: Period Temp Pulse Resp BP Sys/Gonzalez Pulse Ox Last 24 Hr 98.0 F-99.1 F 63-93 18-20 101-132/48-65 95-98 Discharge Results Procedures and tests throughout hospitalization: Pending Orders 09/12/16 10:23 Blood Culture Stat 09/12/16 10:39 Urinalysis Routine Labs on day of discharge: Preliminary micro results at discharge 09/12/16 10:23 Blood Culture - Preliminary Blood No growth at 1 day 09/12/16 10:23 Blood Culture - Preliminary Blood No growth at 1 day DS: Provider Date of admission: 09/11/16 02:31 Primary care physician: . No PCP Attending physician on admission: Charlie Buckley DO Consults: 09/11/16 02:31 Consult to Physician [CONS] Routine Comment: esrd-hd Consulting Provider: Fabio Herring When should Consulting Provider be notified: In am Person Notified: SOPHIE Date Notified: 09/11/16 Time Notified: 09:34 09/11/16 05:02 Consult to Dietitian [CONS] Routine Reason for Dietitian: Other 09/11/16 14:36 Consult to Occupational Therapy [CONS] Routine Reason for Occupational Therapy: Evaluate and Treat Consult to Physical Therapy [CONS] Routine Reason for Physical Therapy: Evaluate and Treat 09/11/16 15:08 Consult to Case Mgmt/Social Srvs [CONS] Routine Reason for Case Mgmt/Social Srvs: Equipment Consult Comment: needs hospital bed and wheelchair at home 09/12/16 15:12 Consult to Physician [CONS] Routine Comment: cva Consulting Provider: Rivera Roberts Person Notified: Laura Date Notified: 09/12/16 Time Notified: 15:16 Discharging clinician: Isabella Fam CNP <Jayde Faulkner - Last Filed: 09/14/16 10:50> Hospital Course - Time spent with patient Time with patient DS: Greater than 30 minutes (35) Diagnosis - Discharge Diagnosis (1) Altered mental status Status: Resolved (2) Generalized weakness Status: Acute (3) ESRD (end stage renal disease) on dialysis Status: Chronic (4) Lower extremity weakness Status: Acute (5) Hypertension Status: Chronic (6) Macrocytic anemia Status: Chronic (7) Pneumonia Status: Resolved Discharge Plan - Discharge Data Condition at Discharge: Stable Discharge Diet: advance to your usual diet Activity: as per physical therapy Hygiene: no restrictions Weight Bearing at Discharge: weight bear as tolerated Contact your physician if you experience:: fever over 101, Shortness of breath Exam - Constitutional General appearance: under weight - Head Head exam: Present: normocephalic, atraumatic - Eye Eye exam: Present: EOMI Pupils: Present: MAHNAZ - ENT ENT exam: Present: normal exam - Neck Neck exam: Present: normal inspection - Respiratory Respiratory exam: Present: clear to auscultation bilaterally. Absent: rhonchi, wheezes - Cardiovascular Cardiovascular exam: Present: regular rate and rhythm - GI/Abdominal GI/Abdominal exam: Present: normal bowel sounds, soft. Absent: tenderness, rebound - Extremities Exam Extremities exam: Present: normal inspection - Back Exam Back exam: Present: normal inspection - Neurological Exam Neurological exam: Present: alert, oriented X3 - Psychiatric Psychiatric exam: Present: normal affect, normal mood - Skin Skin exam: Present: warm, intact
[2016-09-14] MEDS: AZITHROMYCIN INJ 250 MG in SODIUM CHLORIDE 0.9% 250 ML IV SCH (11:01)
[2016-09-14] MEDS: cefTRIAXone 1,000 MG in SODIUM CHLORIDE 0.9% 100 ML IV SCH (11:01)
--- NOTE | 2016-09-14 11:06 | Nephrology Progress Note ---
Nephrology - PN: Subj Interval history: Patient is without complaints. Physical exam general the patient is in no acute distress, she is still very weak in her right leg she is able to lift her left leg up off the bed Assessment/plan 1. End-stage renal disease-we will continue hemodialysis support on Saturday basis 2. Dementia 3. Lower extremity weakness patient has had a stroke confirmed by MRI Exam (PN)-Nephrology - Vital Signs Vital signs: Period Temp Pulse Resp BP Sys/Gonzalez Pulse Ox Last 24 Hr 98.0 F-99.1 F 63-93 18-20 101-132/48-65 95-98 - Lab 09/12/16 04:55 09/12/16 04:55 Most recent lab results Calcium 9.1 MG/DL (8.5-10.1) 09/12/16 04:55 Magnesium 3.1 MG/DL (1.8-2.4) H 09/12/16 04:55 Assessment and Plan (1) ESRD (end stage renal disease) on dialysis Status: Chronic Assessment and plan: We will continue hemodialysis support Current Visit: Yes (2) Anemia Status: Acute Assessment and plan: Patient's hematocrits around 29% Current Visit: Yes (3) Dementia Status: Acute Current Visit: Yes Qualifiers: Dementia type: unspecified type Dementia behavioral disturbance: without behavioral disturbance Qualified Code(s): F03.90 - Unspecified dementia without behavioral disturbance (4) Diarrhea Status: Acute Assessment and plan: Patient had a CT scan of the abdomen that showed cholelithiasis and some diverticula, there was also noted some small right pleural effusion and small consolidation of the right lower lobe of the lung Current Visit: Yes (5) Generalized weakness Status: Acute Current Visit: Yes (6) Hypertension Status: Chronic Current Visit: Yes Qualifiers: Hypertension type: essential hypertension Qualified Code(s): I10 - Essential (primary) hypertension (7) Lower extremity weakness Status: Acute Assessment and plan: Patient had a CT scan of her head which was unremarkable for any acute pathology , she does have diffuse changes consistent with chronic disease Current Visit: Yes (8) Hyperkalemia Status: Acute Current Visit: Yes Specialty Discharge - Follow Up or Referrals
[2016-09-14 11:44] VITALS: BP 94/59
== END 2016-09-14 13:00 | DRG 64 ==
LOC: N.ED 01:40 → SUATTDRO 02:31 → N.EDINP 02:31 → N.5E 03:01
PROVIDERS: ADMIT Internal Medicine; ATTEND Internal Medicine

== ENCOUNTER 2017-03-23 13:31 | Inpatient (IN) ==
[2017-03-23] MEDS ORDERED: PANTOPRAZOLE 40 MG VIAL IV STA (17:11)
[2017-03-23] MEDS ORDERED: ONDANSETRON 4 MG/2 ML VIAL IV STA (17:11)
[2017-03-23] MEDS ORDERED: SODIUM CHLORIDE 0.9% 250 ML IV STA (17:11)
[2017-03-23 17:39] LABS: Apearance,Urine CLOUDY (Clear); Bacteria,Urine Many /HPF (Few); Bilirubin,Urine Negative (Negative); Blood, Urine Small mg/dL (Negative); Glucose,Urine (UA) Negative (Negative); Ketones,Urine 5 mg/dL (Negative); Nitrite,Urine Negative (Negative); Protein,Urine >=500 MG/DL; RBC,Urine 175 /HPF (0-4); Urine Color Yellow (Yellow); Urine Specific Gravity 1.026 (1.001-1.035); Urine Urobilinogen < 2.0 EU/DL (0.2-1.0); WBC,Urine 1356 /HPF (0-6)
[2017-03-23] MEDS ORDERED: cefTRIAXone 1,000 MG in SODIUM CHLORIDE 0.9% 100 ML IV STA (17:51)
[2017-03-23 17:56] LABS: Basophils % 0.3 % (0.0-0.8); Eosinophils # 0.1 10*3/uL (0.0-0.87); Eosinophils % 1.6 % (0.00-10.9); Hemoglobin 7.4 GM/DL (12.0-16.0); Immature Granulocytes % 0.4 %; Immature Granulocytes Absolute 0.03 #; Lymphocytes % 27.1 % (21.3-54.2); Mean Corpuscular HGB Conc 27.9 GM/DL (32-36); Mean Corpuscular Hemoglobin 30 PG (27-34); Mean Platelet Volume 11.3 FL (9.6-12.0); Monocytes # 0.7 10*3/uL (0.11-0.8); Monocytes % 8.9 % (1.7-12.7); Neutrophils # 4.6 10*3/uL (1.4-7.4); Neutrophils % 61.7 % (38.7-73.9); Platelet Count 245 T/CUMM (130-400); Red Cell Distribution Width 15.2 % (9.3-17.3); White Blood Count 7.4 T/CUMM (4-12)
[2017-03-23 17:57] LABS: Hematocrit 26.5 VOL% (35.7-47.0)
[2017-03-23] MEDS ORDERED: cefTRIAXone 1,000 MG VIAL ONE (18:11)
[2017-03-23] MEDS ORDERED: PANTOPRAZOLE 40 MG VIAL IV ONE (18:11)
[2017-03-23] MEDS ORDERED: ONDANSETRON 4 MG/2 ML VIAL ONE (18:11)
[2017-03-23 19:18] LABS: Ammonia 36 UMOL/L (11-32)
[2017-03-23 19:22] LABS: Lactic Acid 2.6 MMOL/L (0.4-2.0)
[2017-03-23 19:24] LABS: Alanine Aminotransferase 9 U/L (13-56); Albumin 2.1 G/DL (3.4-5.0); Alkaline Phosphatase 64 U/L (45-117); Amylase 35 U/L (25-115); Aspartate Amino Transferase 22 U/L (0-37); Blood Urea Nitrogen 42 MG/DL (7-18); Calcium 8.9 MG/DL (8.5-10.1); Glucose 81 MG/DL (74-106); Osmolality,Calculated 284.7 MOS/KG (273-304); Potassium 4.9 MMOL/L (3.5-5.1); Sodium 138 MMOL/L (136-145); Total Protein 6.2 G/DL (6.4-8.3)
[2017-03-23 19:25] LABS: Troponin I Only 0.059 NG/ML (0.00-0.045)
[2017-03-23] MEDS ORDERED: ONDANSETRON 4 MG/2 ML VIAL IV PRN (19:47)
[2017-03-23 19:53] LABS: PT Patient Result 10.9 SECS; Partial Thromboplastin Time 32.8 SECS (0-40)
[2017-03-23] MEDS ORDERED: ACETAMINOPHEN 325 MG TABLET ONE (20:37)
[2017-03-23] MEDS: ACETAMINOPHEN 325 MG TABLET PO PRN (20:40)
[2017-03-23] MEDS ORDERED: ED A HIST PO SCH (21:00)
[2017-03-23] MEDS: cefTRIAXone 1,000 MG in SYRINGE 1 EACH IV SCH (21:56)
[2017-03-23] MEDS: DIPHENOXYLATE/ATROPINE 2.5-0.025 MG TABLET PO SCH (22:15)
[2017-03-23] MEDS: CALCIUM (CITRATE) 200 MG TABLET PO SCH (22:24)
[2017-03-24] MEDS: ACETAMINOPHEN 325 MG TABLET PO PRN ×3 (03:10→13:45)
[2017-03-24] MEDS ORDERED: MORPHINE 2 MG/1 ML SYRINGE IV ONE ×2 (06:30→11:53)
[2017-03-24 07:06] LABS: Basophils % 0.4 % (0.0-0.8); Eosinophils # 0.2 10*3/uL (0.0-0.87); Eosinophils % 3.1 % (0.00-10.9); Hematocrit 23.4 VOL% (35.7-47.0); Hemoglobin 6.7 GM/DL (12.0-16.0); Immature Granulocytes % 0.4 %; Immature Granulocytes Absolute 0.02 #; Lymphocytes # 1.6 10*3/uL (1.4-4.0); Lymphocytes % 31.8 % (21.3-54.2); Mean Corpuscular HGB Conc 28.6 GM/DL (32-36); Mean Corpuscular Hemoglobin 29 PG (27-34); Mean Corpuscular Volume 102.2 FL (87-102); Mean Platelet Volume 11.4 FL (9.6-12.0); Monocytes # 0.4 10*3/uL (0.11-0.8); Monocytes % 8.4 % (1.7-12.7); NRBC # 0.02 10*3/uL; Neutrophils # 2.7 10*3/uL (1.4-7.4); Neutrophils % 55.9 % (38.7-73.9); Platelet Count 235 T/CUMM (130-400); Red Blood Count 2.29 MC/CUMM (3.8-5.5); Red Cell Distribution Width 15.5 % (9.3-17.3); White Blood Count 4.9 T/CUMM (4-12)
[2017-03-24 07:32] LABS: Calcium 8.8 MG/DL (8.5-10.1); Osmolality,Calculated 287.5 MOS/KG (273-304); Potassium 5.5 MMOL/L (3.5-5.1)
[2017-03-24] MEDS ORDERED: SODIUM CHLORIDE 0.9% 1,000 ML IV PRN (07:39)
[2017-03-24 07:58] LABS: Hypochromasia 1+
[2017-03-24] MEDS: PARoxetine 10 MG TABLET PO SCH (08:44)
[2017-03-24] MEDS: MEMANTINE 5 MG TABLET PO SCH ×2 (08:44→21:20)
[2017-03-24] MEDS: DIPHENOXYLATE/ATROPINE 2.5-0.025 MG TABLET PO SCH ×2 (08:44→21:20)
[2017-03-24] MEDS: CALCIUM (CITRATE) 200 MG TABLET PO SCH ×2 (08:44→21:20)
[2017-03-24] MEDS: MEGESTROL 400 MG/10 ML UDCUP PO SCH (08:44)
[2017-03-24] MEDS ORDERED: MORPHINE 2 MG/1 ML SYRINGE IV PRN (11:55)
[2017-03-24] MEDS: cefTRIAXone 1,000 MG in SYRINGE 1 EACH IV SCH (17:03)
[2017-03-24 18:38] LABS: Hemoglobin 8.1 GM/DL (12.0-16.0)
[2017-03-24] MEDS: DONEPEZIL 10 MG TABLET PO SCH (21:20)
[2017-03-25 06:13] LABS: Hematocrit 26.1 VOL% (35.7-47.0); Hemoglobin 7.8 GM/DL (12.0-16.0); Red Blood Count 2.64 MC/CUMM (3.8-5.5); White Blood Count 7.2 T/CUMM (4-12)
[2017-03-25 06:14] LABS: Basophils % 0.6 % (0.0-0.8); Eosinophils # 0.1 10*3/uL (0.0-0.87); Eosinophils % 0.8 % (0.00-10.9); Immature Granulocytes % 0.3 %; Immature Granulocytes Absolute 0.02 #; Lymphocytes % 27.1 % (21.3-54.2); Mean Corpuscular HGB Conc 29.9 GM/DL (32-36); Mean Corpuscular Hemoglobin 30 PG (27-34); Mean Corpuscular Volume 98.9 FL (87-102); Mean Platelet Volume 11.1 FL (9.6-12.0); Monocytes # 0.8 10*3/uL (0.11-0.8); Monocytes % 10.4 % (1.7-12.7); Neutrophils # 4.4 10*3/uL (1.4-7.4); Neutrophils % 60.8 % (38.7-73.9); Platelet Count 247 T/CUMM (130-400); Red Cell Distribution Width 15.9 % (9.3-17.3)
[2017-03-25 07:28] LABS: Giant Platelets Few; Hypochromasia 1+; Lymphocytes 30 % (20-55); Ovalocytes Slight; Platelet Estimate Adequate; Segmented Neutrophils 62 % (50-85); Total Cells Counted 100
[2017-03-25] MEDS: ACETAMINOPHEN 650 MG SUPP RECTAL SCH ×2 (08:53→13:29)
[2017-03-25] MEDS: CALCIUM (CITRATE) 200 MG TABLET PO SCH ×2 (11:37→21:13)
[2017-03-25] MEDS: DIPHENOXYLATE/ATROPINE 2.5-0.025 MG TABLET PO SCH ×2 (11:37→21:13)
[2017-03-25] MEDS: PARoxetine 10 MG TABLET PO SCH (11:37)
[2017-03-25] MEDS: MEGESTROL 400 MG/10 ML UDCUP PO SCH (11:37)
[2017-03-25] MEDS: MEMANTINE 5 MG TABLET PO SCH ×2 (11:37→21:13)
[2017-03-25] MEDS ORDERED: EPOETIN ALFA 10,000 UNIT/1 ML VIAL IV PRN (13:10)
[2017-03-25] MEDS ORDERED: ACETAMINOPHEN 650 MG SUPP RECTAL PRN (13:29)
[2017-03-25 15:36] LABS: Hematocrit 31.8 VOL% (35.7-47.0)
[2017-03-25 15:37] LABS: Hemoglobin 9.7 GM/DL (12.0-16.0)
[2017-03-25] MEDS ORDERED: ZINC OXIDE PASTE 113 GM TUBE TOP PRN (16:52)
[2017-03-25] MEDS ORDERED: SKIN HEALING OINT (AQUAPHOR) 50 GM TUBE TOP PRN (17:07)
[2017-03-25] MEDS: cefTRIAXone 1,000 MG in SYRINGE 1 EACH IV SCH (18:03)
[2017-03-25] MEDS: DONEPEZIL 10 MG TABLET PO SCH (18:35)
[2017-03-26 06:05] LABS: Basophils % 0.3 % (0.0-0.8); Eosinophils # 0.2 10*3/uL (0.0-0.87); Eosinophils % 2.6 % (0.00-10.9); Hematocrit 30.5 VOL% (35.7-47.0); Hemoglobin 9.4 GM/DL (12.0-16.0); Immature Granulocytes % 0.3 %; Immature Granulocytes Absolute 0.02 #; Lymphocytes # 1.3 10*3/uL (1.4-4.0); Lymphocytes % 20.7 % (21.3-54.2); Mean Corpuscular HGB Conc 30.8 GM/DL (32-36); Mean Corpuscular Hemoglobin 30 PG (27-34); Mean Corpuscular Volume 96.5 FL (87-102); Mean Platelet Volume 10.8 FL (9.6-12.0); Monocytes # 0.7 10*3/uL (0.11-0.8); Monocytes % 10.4 % (1.7-12.7); Neutrophils # 4.2 10*3/uL (1.4-7.4); Neutrophils % 65.7 % (38.7-73.9); Platelet Count 189 T/CUMM (130-400); Red Blood Count 3.16 MC/CUMM (3.8-5.5); Red Cell Distribution Width 16.7 % (9.3-17.3); White Blood Count 6.4 T/CUMM (4-12)
[2017-03-26 06:31] LABS: Calcium 8.9 MG/DL (8.5-10.1); Osmolality,Calculated 281.7 MOS/KG (273-304)
[2017-03-26] MEDS: MEGESTROL 400 MG/10 ML UDCUP PO SCH (08:26)
[2017-03-26] MEDS: PARoxetine 10 MG TABLET PO SCH (08:26)
[2017-03-26] MEDS: DIPHENOXYLATE/ATROPINE 2.5-0.025 MG TABLET PO SCH ×2 (08:26→20:54)
[2017-03-26] MEDS: CALCIUM (CITRATE) 200 MG TABLET PO SCH ×2 (08:29→20:53)
[2017-03-26] MEDS: MEMANTINE 5 MG TABLET PO SCH ×2 (08:30→20:53)
[2017-03-26] MEDS ORDERED: MORPHINE 10 MG/1 ML VIAL IV PRN (14:30)
[2017-03-26] MEDS ORDERED: GENTAMICIN INJ 80 MG in PREMIX 1 EACH IV PRN (15:46)
[2017-03-26] MEDS: AMPICILLIN INJ 2,000 MG in SODIUM CHLORIDE 0.9% 100 ML IV SCH (17:41)
[2017-03-26] MEDS ORDERED: GENTAMICIN INJ 120 MG in PREMIX 1 EACH IV ONE (18:00)
[2017-03-26] MEDS: DONEPEZIL 10 MG TABLET PO SCH (20:53)
[2017-03-26] MEDS: FLUCONAZOLE INJ 100 MG in IV BAG 1 EACH IV SCH (20:54)
[2017-03-27] MEDS: MEGESTROL 400 MG/10 ML UDCUP PO SCH (09:30)
[2017-03-27] MEDS: CALCIUM (CITRATE) 200 MG TABLET PO SCH ×2 (09:30→20:24)
[2017-03-27] MEDS: MEMANTINE 5 MG TABLET PO SCH ×2 (09:31→20:24)
[2017-03-27] MEDS: PARoxetine 10 MG TABLET PO SCH (09:32)
[2017-03-27] MEDS: DIPHENOXYLATE/ATROPINE 2.5-0.025 MG TABLET PO SCH ×2 (09:34→20:22)
[2017-03-27] MEDS: AMPICILLIN INJ 2,000 MG in SODIUM CHLORIDE 0.9% 100 ML IV SCH (16:55)
[2017-03-27] MEDS: FLUCONAZOLE INJ 100 MG in IV BAG 1 EACH IV SCH ×2 (17:48→18:07)
[2017-03-27] MEDS: DONEPEZIL 10 MG TABLET PO SCH (20:24)
[2017-03-28 06:42] LABS: Basophils % 0.3 % (0.0-0.8); Eosinophils # 0.2 10*3/uL (0.0-0.87); Eosinophils % 3.6 % (0.00-10.9); Hematocrit 27.2 VOL% (35.7-47.0); Hemoglobin 8.2 GM/DL (12.0-16.0); Immature Granulocytes % 0.5 %; Immature Granulocytes Absolute 0.03 #; Lymphocytes # 1.6 10*3/uL (1.4-4.0); Lymphocytes % 27.4 % (21.3-54.2); Mean Corpuscular HGB Conc 30.1 GM/DL (32-36); Mean Corpuscular Hemoglobin 30 PG (27-34); Mean Corpuscular Volume 98.9 FL (87-102); Mean Platelet Volume 11.3 FL (9.6-12.0); Monocytes # 0.5 10*3/uL (0.11-0.8); Monocytes % 8.7 % (1.7-12.7); Neutrophils # 3.5 10*3/uL (1.4-7.4); Neutrophils % 59.5 % (38.7-73.9); Platelet Count 158 T/CUMM (130-400); Red Blood Count 2.75 MC/CUMM (3.8-5.5); Red Cell Distribution Width 15.9 % (9.3-17.3); White Blood Count 5.9 T/CUMM (4-12)
[2017-03-28 07:33] LABS: Calcium 8.9 MG/DL (8.5-10.1); Osmolality,Calculated 277.8 MOS/KG (273-304); Potassium 4.2 MMOL/L (3.5-5.1)
[2017-03-28] MEDS: MEMANTINE 5 MG TABLET PO SCH ×3 (08:38→21:36)
[2017-03-28] MEDS: DIPHENOXYLATE/ATROPINE 2.5-0.025 MG TABLET PO SCH ×3 (08:38→21:36)
[2017-03-28] MEDS: MEGESTROL 400 MG/10 ML UDCUP PO SCH (08:38)
[2017-03-28] MEDS: CALCIUM (CITRATE) 200 MG TABLET PO SCH ×3 (08:38→21:35)
[2017-03-28] MEDS: PARoxetine 10 MG TABLET PO SCH (08:38)
[2017-03-28] MEDS ORDERED: GENTAMICIN INJ 80 MG in PREMIX 1 EACH IV ONE (15:00)
[2017-03-28] MEDS ORDERED: AMPICILLIN BLADDERIRR SCH (16:00)
[2017-03-28] MEDS: AMPICILLIN INJ 2,000 MG in SODIUM CHLORIDE 0.9% 100 ML IV SCH (16:44)
[2017-03-28] MEDS: DONEPEZIL 10 MG TABLET PO SCH (20:42)
[2017-03-28] MEDS: FLUCONAZOLE INJ 100 MG in IV BAG 1 EACH IV SCH (20:42)
[2017-03-28] MEDS ORDERED: NALOXONE 0.4 MG/ML VIAL IV ONE (23:41)
[2017-03-28] MEDS ORDERED: NALOXONE 0.4 MG/ML VIAL ONE (23:42)
[2017-03-28] MEDS ORDERED: LEVOFLOXACIN INJ 750 MG in PREMIX 1 EACH IV ONE (23:45)
[2017-03-29] MEDS: AMPICILLIN BLADDERIRR SCH ×3 (01:01→17:36)
[2017-03-29 06:57] LABS: Hematocrit 27.6 VOL% (35.7-47.0); Hemoglobin 8.1 GM/DL (12.0-16.0)
[2017-03-29] MEDS: PARoxetine 10 MG TABLET PO SCH (09:43)
[2017-03-29] MEDS: MEGESTROL 400 MG/10 ML UDCUP PO SCH (09:43)
[2017-03-29] MEDS: DIPHENOXYLATE/ATROPINE 2.5-0.025 MG TABLET PO SCH ×2 (09:43→21:53)
[2017-03-29] MEDS: MEMANTINE 5 MG TABLET PO SCH ×2 (09:43→21:53)
[2017-03-29] MEDS: CALCIUM (CITRATE) 200 MG TABLET PO SCH ×2 (09:43→21:53)
[2017-03-29] MEDS ORDERED: traMADol 50 MG TABLET PO PRN (09:45)
[2017-03-29] MEDS ORDERED: KETOROLAC 30 MG/1 ML VIAL IV PRN (09:49)
[2017-03-29] MEDS: AMPICILLIN INJ 2,000 MG in SODIUM CHLORIDE 0.9% 100 ML IV SCH (17:09)
[2017-03-29] MEDS: FLUCONAZOLE INJ 100 MG in IV BAG 1 EACH IV SCH (21:53)
[2017-03-29] MEDS: DONEPEZIL 10 MG TABLET PO SCH (21:53)
[2017-03-30] MEDS: AMPICILLIN BLADDERIRR SCH ×3 (01:27→17:39)
[2017-03-30 06:45] LABS: Basophils % 0.5 % (0.0-0.8); Eosinophils # 0.3 10*3/uL (0.0-0.87); Hematocrit 24.7 VOL% (35.7-47.0); Hemoglobin 7.2 GM/DL (12.0-16.0); Immature Granulocytes % 0.6 %; Immature Granulocytes Absolute 0.04 #; Lymphocytes # 1.6 10*3/uL (1.4-4.0); Lymphocytes % 24.6 % (21.3-54.2); Mean Corpuscular HGB Conc 29.1 GM/DL (32-36); Mean Corpuscular Hemoglobin 29 PG (27-34); Mean Corpuscular Volume 100.8 FL (87-102); Mean Platelet Volume 11.3 FL (9.6-12.0); Monocytes # 0.4 10*3/uL (0.11-0.8); Monocytes % 6.6 % (1.7-12.7); Neutrophils # 4.2 10*3/uL (1.4-7.4); Neutrophils % 63.7 % (38.7-73.9); Platelet Count 130 T/CUMM (130-400); Red Blood Count 2.45 MC/CUMM (3.8-5.5); Red Cell Distribution Width 15.7 % (9.3-17.3); White Blood Count 6.5 T/CUMM (4-12)
[2017-03-30 07:19] LABS: Calcium 8.8 MG/DL (8.5-10.1); Osmolality,Calculated 269.4 MOS/KG (273-304); Potassium 4.6 MMOL/L (3.5-5.1)
[2017-03-30 08:02] LABS: Hypochromasia 1+
[2017-03-30 08:03] LABS: Giant Platelets Few; Ovalocytes Slight; Platelet Estimate Normal
[2017-03-30] MEDS ORDERED: SODIUM CHLORIDE 0.9% 1,000 ML IV PRN (08:06)
[2017-03-30] MEDS: PARoxetine 10 MG TABLET PO SCH (09:08)
[2017-03-30] MEDS: MEGESTROL 400 MG/10 ML UDCUP PO SCH (09:09)
[2017-03-30] MEDS: CALCIUM (CITRATE) 200 MG TABLET PO SCH ×2 (09:09→21:03)
[2017-03-30] MEDS: DIPHENOXYLATE/ATROPINE 2.5-0.025 MG TABLET PO SCH ×2 (09:09→21:03)
[2017-03-30] MEDS: MEMANTINE 5 MG TABLET PO SCH ×2 (09:09→21:04)
[2017-03-30] MEDS: AMPICILLIN INJ 2,000 MG in SODIUM CHLORIDE 0.9% 100 ML IV SCH (17:38)
[2017-03-30] MEDS: FLUCONAZOLE INJ 100 MG in IV BAG 1 EACH IV SCH (18:14)
[2017-03-30] MEDS: DONEPEZIL 10 MG TABLET PO SCH (21:04)
[2017-03-30] MEDS ORDERED: LEVOFLOXACIN INJ 500 MG in PREMIX 1 EACH IV SCH (23:30)
[2017-03-31] MEDS: AMPICILLIN BLADDERIRR SCH ×3 (01:03→17:45)
[2017-03-31 06:11] LABS: INR 1.1; PT Patient Result 11.7 SECS
[2017-03-31 06:12] LABS: Hematocrit 32.4 VOL% (35.7-47.0)
[2017-03-31 06:15] LABS: Basophils % 0.4 % (0.0-0.8); Eosinophils # 0.3 10*3/uL (0.0-0.87); Eosinophils % 5.7 % (0.00-10.9); Hematocrit 31.9 VOL% (35.7-47.0); Immature Granulocytes % 0.5 %; Immature Granulocytes Absolute 0.03 #; Lymphocytes # 1.5 10*3/uL (1.4-4.0); Lymphocytes % 26.7 % (21.3-54.2); Mean Corpuscular HGB Conc 32.3 GM/DL (32-36); Mean Corpuscular Hemoglobin 29 PG (27-34); Mean Corpuscular Volume 90.4 FL (87-102); Mean Platelet Volume 11.6 FL (9.6-12.0); Monocytes # 0.4 10*3/uL (0.11-0.8); Monocytes % 6.2 % (1.7-12.7); Neutrophils # 3.4 10*3/uL (1.4-7.4); Neutrophils % 60.5 % (38.7-73.9); Platelet Count 130 T/CUMM (130-400); Red Blood Count 3.53 MC/CUMM (3.8-5.5); Red Cell Distribution Width 19.7 % (9.3-17.3); White Blood Count 5.7 T/CUMM (4-12)
[2017-03-31 06:28] LABS: Hemoglobin 10.1 GM/DL (12.0-16.0)
[2017-03-31 06:31] LABS: Hemoglobin 10.3 GM/DL (12.0-16.0)
[2017-03-31] MEDS: MEGESTROL 400 MG/10 ML UDCUP PO SCH (10:23)
[2017-03-31] MEDS: MEMANTINE 5 MG TABLET PO SCH ×2 (10:23→21:01)
[2017-03-31] MEDS: PARoxetine 10 MG TABLET PO SCH (10:23)
[2017-03-31] MEDS: CALCIUM (CITRATE) 200 MG TABLET PO SCH ×2 (10:24→21:01)
[2017-03-31] MEDS: AMPICILLIN INJ 2,000 MG in SODIUM CHLORIDE 0.9% 100 ML IV SCH (19:06)
[2017-03-31] MEDS: FLUCONAZOLE INJ 100 MG in IV BAG 1 EACH IV SCH (21:00)
[2017-03-31] MEDS: DONEPEZIL 10 MG TABLET PO SCH (21:01)
[2017-04-01] MEDS: AMPICILLIN BLADDERIRR SCH ×2 (01:04→12:34)
[2017-04-01] MEDS: ACETAMINOPHEN 325 MG TABLET PO PRN (01:35)
[2017-04-01] MEDS: MEMANTINE 5 MG TABLET PO SCH (09:16)
[2017-04-01] MEDS: MEGESTROL 400 MG/10 ML UDCUP PO SCH (09:16)
[2017-04-01] MEDS: PARoxetine 10 MG TABLET PO SCH (09:16)
[2017-04-01] MEDS: CALCIUM (CITRATE) 200 MG TABLET PO SCH (09:16)
[2017-04-01 13:22] VITALS: BP 137/69
== END 2017-04-01 15:20 | disposition home health service (06) | DRG 689 ==
LOC: N.ED 13:31 → N.EDINP 19:47 → SUATTDRO 19:47 → N.5E 21:00
PROVIDERS: ADMIT Family Medicine; ATTEND Internal Medicine

== ENCOUNTER 2018-10-31 16:43 | Inpatient (IN) ==
[2018-10-31 17:22] LABS: Basophils % 0.8 % (0.0-0.8); Eosinophils # 0.2 10*3/uL (0.0-0.87); Eosinophils % 5.2 % (0.00-10.9); Hematocrit 27.3 VOL% (35.7-47.0); Hemoglobin 7.9 GM/DL (12.0-16.0); Immature Granulocytes % 0.3 %; Immature Granulocytes Absolute 0.01 #; Lymphocytes # 0.6 10*3/uL (1.4-4.0); Lymphocytes % 15.9 % (21.3-54.2); Mean Corpuscular HGB Conc 28.9 GM/DL (32-36); Mean Corpuscular Volume 105.8 FL (87-102); Mean Platelet Volume 11.4 FL (9.6-12.0); Monocytes % 9.6 % (1.7-12.7); Neutrophils % 68.2 % (38.7-73.9); Platelet Count 152 T/CUMM (130-400); Red Blood Count 2.58 MC/CUMM (3.8-5.5); Red Cell Distribution Width 14.8 % (9.3-17.3); White Blood Count 3.7 T/CUMM (4-12)
[2018-10-31] MEDS ORDERED: DOCUSATE SODIUM 100 MG CAPSULE PO PRN (18:22)
[2018-10-31] MEDS ORDERED: ONDANSETRON 4 MG/2 ML VIAL IV PRN (18:22)
[2018-10-31] MEDS ORDERED: cefTRIAXone 1,000 MG in SYRINGE 1 EACH IV STA (18:26)
[2018-10-31 19:11] LABS: Alanine Aminotransferase < 9 U/L (13-56); Alkaline Phosphatase 70 U/L (45-117); Aspartate Amino Transferase 16 U/L (0-37); Blood Urea Nitrogen 54 MG/DL (7-18); Calcium 8.6 MG/DL (8.5-10.1); Glucose 95 MG/DL (74-106); Osmolality,Calculated 293.4 MOS/KG (273-304); Total Protein 6.8 G/DL (6.4-8.3)
[2018-10-31 19:36] LABS: Macrocytosis 2+; Platelet Estimate Normal
[2018-10-31 19:46] LABS: Sedimentation Rate-Westergren 120 MM/HR (0-30)
[2018-10-31] MEDS ORDERED: SKIN HEALING OINT (AQUAPHOR) 50 GM TUBE TOP PRN (20:39)
[2018-10-31] MEDS ORDERED: ALBUTEROL/IPRATROPIUM 3 ML NEB RESP TX PRN (20:39)
[2018-10-31] MEDS ORDERED: clonazePAM 0.5 MG TABLET PO PRN (20:39)
[2018-10-31] MEDS: SODIUM CHLORIDE 0.9% 1,000 ML IV SCH (21:22)
[2018-11-01] MEDS: cefTRIAXone 1,000 MG in SYRINGE 1 EACH IV SCH ×2 (05:38→17:03)
[2018-11-01] MEDS: LEVOTHYROXINE 25 MCG TABLET PO SCH (05:53)
[2018-11-01 05:56] LABS: Basophils % 0.5 % (0.0-0.8); Eosinophils # 0.3 10*3/uL (0.0-0.87); Eosinophils % 8.6 % (0.00-10.9); Hematocrit 23.6 VOL% (35.7-47.0); Immature Granulocytes % 0.5 %; Immature Granulocytes Absolute 0.02 #; Lymphocytes # 0.6 10*3/uL (1.4-4.0); Lymphocytes % 16.7 % (21.3-54.2); Mean Corpuscular HGB Conc 29.7 GM/DL (32-36); Mean Corpuscular Volume 104.4 FL (87-102); Mean Platelet Volume 11.8 FL (9.6-12.0); Neutrophils % 62.7 % (38.7-73.9); Platelet Count 172 T/CUMM (130-400); Red Blood Count 2.26 MC/CUMM (3.8-5.5); Red Cell Distribution Width 14.9 % (9.3-17.3); White Blood Count 3.8 T/CUMM (4-12)
[2018-11-01 06:21] LABS: Calcium 7.9 MG/DL (8.5-10.1); Osmolality,Calculated 295.3 MOS/KG (273-304)
[2018-11-01] MEDS: DIPHENOXYLATE/ATROPINE 2.5-0.025 MG TABLET PO SCH (08:45)
[2018-11-01] MEDS: CALCIUM (CARBONATE) 500 MG TABLET PO SCH ×3 (08:45→18:41)
[2018-11-01] MEDS: PANTOPRAZOLE 40 MG TABLET PO SCH (08:45)
[2018-11-01] MEDS: MEMANTINE 5 MG TABLET PO SCH ×2 (08:46→21:40)
[2018-11-01] MEDS: AZITHROMYCIN 250 MG TABLET PO SCH (08:46)
[2018-11-01] MEDS ORDERED: EPOETIN ALFA 10,000 UNIT/1 ML VIAL IV PRN (10:23)
[2018-11-01] MEDS ORDERED: HEPARIN 10,000 UNIT/10 ML VIAL IV PRN (10:50)
[2018-11-01] MEDS: SODIUM CHLORIDE 0.9% 1,000 ML IV SCH (12:39)
[2018-11-01] MEDS: ACETAMINOPHEN 325 MG TABLET PO PRN (15:42)
[2018-11-01] MEDS: DONEPEZIL 10 MG TABLET PO SCH (17:06)
[2018-11-02] MEDS: LEVOTHYROXINE 25 MCG TABLET PO SCH (06:28)
[2018-11-02] MEDS: SODIUM CHLORIDE 0.9% 1,000 ML IV SCH (06:28)
[2018-11-02] MEDS: cefTRIAXone 1,000 MG in SYRINGE 1 EACH IV SCH ×2 (06:29→17:24)
[2018-11-02 09:40] LABS: Basophils % 0.3 % (0.0-0.8); Eosinophils # 0.2 10*3/uL (0.0-0.87); Hematocrit 21.3 VOL% (35.7-47.0); Immature Granulocytes % 0.3 %; Immature Granulocytes Absolute 0.01 #; Lymphocytes # 0.5 10*3/uL (1.4-4.0); Lymphocytes % 15.2 % (21.3-54.2); Mean Corpuscular Volume 104.9 FL (87-102); Mean Platelet Volume 11.5 FL (9.6-12.0); Monocytes % 11.4 % (1.7-12.7); Neutrophils % 65.8 % (38.7-73.9); Platelet Count 149 T/CUMM (130-400); Red Blood Count 2.03 MC/CUMM (3.8-5.5); Red Cell Distribution Width 14.7 % (9.3-17.3); White Blood Count 3.2 T/CUMM (4-12)
[2018-11-02 09:47] LABS: Hemoglobin 6.4 GM/DL (12.0-16.0)
[2018-11-02] MEDS: AZITHROMYCIN 250 MG TABLET PO SCH (09:49)
[2018-11-02] MEDS: CALCIUM (CARBONATE) 500 MG TABLET PO SCH ×3 (09:49→17:23)
[2018-11-02] MEDS: PANTOPRAZOLE 40 MG TABLET PO SCH (09:50)
[2018-11-02] MEDS: DIPHENOXYLATE/ATROPINE 2.5-0.025 MG TABLET PO SCH (09:50)
[2018-11-02] MEDS: MEMANTINE 5 MG TABLET PO SCH ×2 (09:50→21:13)
[2018-11-02] MEDS ORDERED: SODIUM CHLORIDE 0.9% 1,000 ML IV PRN (09:57)
[2018-11-02 10:03] LABS: Calcium 8.5 MG/DL (8.5-10.1); Osmolality,Calculated 287.5 MOS/KG (273-304)
[2018-11-02 10:33] LABS: Ovalocytes Few
[2018-11-02 10:34] LABS: Microcytosis Slight; Platelet Estimate Adequate; Polychromasia Slight
[2018-11-02] MEDS ORDERED: diphenhydrAMINE CAP 25 MG CAPSULE PO ONE (11:46)
[2018-11-02] MEDS: ACETAMINOPHEN 325 MG TABLET PO PRN (12:37)
[2018-11-02] MEDS: DONEPEZIL 10 MG TABLET PO SCH (17:23)
[2018-11-03 01:14] LABS: Hematocrit 28.8 VOL% (35.7-47.0); Hemoglobin 9.1 GM/DL (12.0-16.0)
[2018-11-03 05:02] LABS: Basophils % 0.8 % (0.0-0.8); Eosinophils # 0.3 10*3/uL (0.0-0.87); Hematocrit 30.3 VOL% (35.7-47.0); Hemoglobin 9.1 GM/DL (12.0-16.0); Immature Granulocytes % 0.3 %; Immature Granulocytes Absolute 0.01 #; Lymphocytes # 0.6 10*3/uL (1.4-4.0); Lymphocytes % 16.1 % (21.3-54.2); Mean Corpuscular Volume 94.1 FL (87-102); Mean Platelet Volume 11.4 FL (9.6-12.0); Monocytes % 12.4 % (1.7-12.7); Neutrophils % 61.4 % (38.7-73.9); Platelet Count 155 T/CUMM (130-400); Red Blood Count 3.22 MC/CUMM (3.8-5.5); White Blood Count 3.8 T/CUMM (4-12)
[2018-11-03] MEDS: cefTRIAXone 1,000 MG in SYRINGE 1 EACH IV SCH (05:22)
[2018-11-03] MEDS: LEVOTHYROXINE 25 MCG TABLET PO SCH (05:35)
[2018-11-03 05:36] LABS: Calcium 8.3 MG/DL (8.5-10.1); Osmolality,Calculated 288.7 MOS/KG (273-304); Thyroid Stimulating Hormone 3.79 uIU/ml (0.358-3.74)
[2018-11-03 05:37] LABS: Folate 4.5 NG/ML (5.4-24.0)
[2018-11-03] MEDS: DIPHENOXYLATE/ATROPINE 2.5-0.025 MG TABLET PO SCH (10:27)
[2018-11-03] MEDS: PANTOPRAZOLE 40 MG TABLET PO SCH (10:27)
[2018-11-03] MEDS: MEMANTINE 5 MG TABLET PO SCH ×2 (10:27→21:10)
[2018-11-03] MEDS: AZITHROMYCIN 250 MG TABLET PO SCH (10:27)
[2018-11-03] MEDS: CALCIUM (CARBONATE) 500 MG TABLET PO SCH ×3 (10:27→19:02)
[2018-11-03] MEDS: FOLIC ACID 1 MG TABLET PO SCH (11:12)
[2018-11-03] MEDS: DONEPEZIL 10 MG TABLET PO SCH (19:02)
[2018-11-03] MEDS: ACETAMINOPHEN 325 MG TABLET PO PRN (19:43)
[2018-11-04] MEDS: LEVOTHYROXINE 25 MCG TABLET PO SCH (06:05)
[2018-11-04] MEDS: DIPHENOXYLATE/ATROPINE 2.5-0.025 MG TABLET PO SCH (09:00)
[2018-11-04] MEDS: CALCIUM (CARBONATE) 500 MG TABLET PO SCH ×3 (09:00→18:29)
[2018-11-04] MEDS: cefTRIAXone 1,000 MG in SYRINGE 1 EACH IV SCH (09:00)
[2018-11-04] MEDS: MEMANTINE 5 MG TABLET PO SCH ×2 (09:00→22:02)
[2018-11-04] MEDS: PANTOPRAZOLE 40 MG TABLET PO SCH (09:00)
[2018-11-04] MEDS: AZITHROMYCIN 250 MG TABLET PO SCH (09:00)
[2018-11-04] MEDS: FOLIC ACID 1 MG TABLET PO SCH (09:00)
[2018-11-04] MEDS: DONEPEZIL 10 MG TABLET PO SCH (18:29)
[2018-11-05] MEDS: LEVOTHYROXINE 25 MCG TABLET PO SCH (06:23)
[2018-11-05 11:44] LABS: Albumin 1.9 G/DL (3.4-5.0); Total Protein 6.6 G/DL (6.4-8.3)
[2018-11-05] MEDS: cefTRIAXone 1,000 MG in SYRINGE 1 EACH IV SCH (13:49)
[2018-11-05] MEDS: FOLIC ACID 1 MG TABLET PO SCH (14:06)
[2018-11-05] MEDS: DIPHENOXYLATE/ATROPINE 2.5-0.025 MG TABLET PO SCH (14:06)
[2018-11-05] MEDS: AZITHROMYCIN 250 MG TABLET PO SCH (14:06)
[2018-11-05] MEDS: MEMANTINE 5 MG TABLET PO SCH ×2 (14:06→22:41)
[2018-11-05] MEDS: PANTOPRAZOLE 40 MG TABLET PO SCH (14:06)
[2018-11-05] MEDS: CALCIUM (CARBONATE) 500 MG TABLET PO SCH ×3 (14:07→17:30)
[2018-11-05] MEDS: DONEPEZIL 10 MG TABLET PO SCH (17:29)
[2018-11-06 05:29] LABS: Basophils % 0.6 % (0.0-0.8); Eosinophils # 0.3 10*3/uL (0.0-0.87); Eosinophils % 5.8 % (0.00-10.9); Hematocrit 25.8 VOL% (35.7-47.0); Hemoglobin 7.8 GM/DL (12.0-16.0); Immature Granulocytes % 0.4 %; Immature Granulocytes Absolute 0.02 #; Lymphocytes # 0.7 10*3/uL (1.4-4.0); Lymphocytes % 14.4 % (21.3-54.2); Mean Corpuscular HGB Conc 30.2 GM/DL (32-36); Mean Platelet Volume 11.6 FL (9.6-12.0); Monocytes % 14.2 % (1.7-12.7); Neutrophils % 64.6 % (38.7-73.9); Platelet Count 135 T/CUMM (130-400); Red Blood Count 2.66 MC/CUMM (3.8-5.5); Red Cell Distribution Width 18.4 % (9.3-17.3); White Blood Count 4.8 T/CUMM (4-12)
[2018-11-06] MEDS: LEVOTHYROXINE 25 MCG TABLET PO SCH (05:32)
[2018-11-06] MEDS: DIPHENOXYLATE/ATROPINE 2.5-0.025 MG TABLET PO SCH (09:22)
[2018-11-06] MEDS: PANTOPRAZOLE 40 MG TABLET PO SCH (09:23)
[2018-11-06] MEDS: AZITHROMYCIN 250 MG TABLET PO SCH (09:23)
[2018-11-06] MEDS: CALCIUM (CARBONATE) 500 MG TABLET PO SCH ×3 (09:23→21:20)
[2018-11-06] MEDS: MEMANTINE 5 MG TABLET PO SCH ×2 (09:23→21:20)
[2018-11-06] MEDS: cefTRIAXone 1,000 MG in SYRINGE 1 EACH IV SCH (09:24)
[2018-11-06] MEDS: FOLIC ACID 1 MG TABLET PO SCH (09:32)
[2018-11-06] MEDS: DONEPEZIL 10 MG TABLET PO SCH (18:59)
[2018-11-07] MEDS: ACETAMINOPHEN 325 MG TABLET PO PRN (04:01)
[2018-11-07 05:12] LABS: Basophils % 0.5 % (0.0-0.8); Eosinophils # 0.3 10*3/uL (0.0-0.87); Eosinophils % 7.5 % (0.00-10.9); Hematocrit 24.4 VOL% (35.7-47.0); Hemoglobin 7.3 GM/DL (12.0-16.0); Immature Granulocytes % 0.3 %; Immature Granulocytes Absolute 0.01 #; Lymphocytes # 0.7 10*3/uL (1.4-4.0); Lymphocytes % 18.4 % (21.3-54.2); Mean Corpuscular HGB Conc 29.9 GM/DL (32-36); Mean Corpuscular Volume 97.6 FL (87-102); Mean Platelet Volume 11.8 FL (9.6-12.0); Monocytes % 12.8 % (1.7-12.7); Neutrophils % 60.5 % (38.7-73.9); Platelet Count 129 T/CUMM (130-400); Red Cell Distribution Width 18.3 % (9.3-17.3); White Blood Count 3.8 T/CUMM (4-12)
[2018-11-07 05:28] LABS: Calcium 8.4 MG/DL (8.5-10.1); Osmolality,Calculated 284.3 MOS/KG (273-304)
[2018-11-07] MEDS: LEVOTHYROXINE 25 MCG TABLET PO SCH (05:43)
[2018-11-07] MEDS: FOLIC ACID 1 MG TABLET PO SCH (09:44)
[2018-11-07] MEDS: PANTOPRAZOLE 40 MG TABLET PO SCH (09:44)
[2018-11-07] MEDS: CALCIUM (CARBONATE) 500 MG TABLET PO SCH ×2 (09:44→13:47)
[2018-11-07] MEDS: DIPHENOXYLATE/ATROPINE 2.5-0.025 MG TABLET PO SCH (09:44)
[2018-11-07] MEDS: MEMANTINE 5 MG TABLET PO SCH (10:33)
[2018-11-07] MEDS: cefTRIAXone 1,000 MG in SYRINGE 1 EACH IV SCH (10:33)
[2018-11-07 12:36] VITALS: BP 128/60
== END 2018-11-07 14:14 | disposition home health service (06) | DRG 193 ==
LOC: N.ED 16:43 → SUATTDRO 18:22 → N.EDINP 18:22 → N.5E 20:15
PROVIDERS: ADMIT Family Medicine; ATTEND Internal Medicine
PROC: IRTHORA (2018-11-05 10:15)

== ENCOUNTER 2019-01-24 20:36 | Observation (INO) ==
[2019-01-24] MEDS ORDERED: ONDANSETRON 4 MG/2 ML VIAL IV PRN (21:19)
[2019-01-24] MEDS ORDERED: ACETAMINOPHEN 325 MG TABLET PO PRN (21:19)
[2019-01-24] MEDS ORDERED: hydrALAZINE 20 MG/1 ML VIAL IV PRN (21:25)
[2019-01-24] MEDS: HEPARIN 5,000 UNIT/1 ML VIAL SUBCUT SCH (22:32)
[2019-01-24] MEDS ORDERED: HYDROcodone/HOMATROPINE 5 ML UDCUP PO PRN (23:29)
[2019-01-24] MEDS ORDERED: clonazePAM 0.5 MG TABLET PO PRN (23:29)
[2019-01-24 23:31] LABS: Basophils % 0.1 % (0.0-0.8); Eosinophils % 0.4 % (0.00-10.9); Hematocrit 34.1 VOL% (35.7-47.0); Hemoglobin 10.4 GM/DL (12.0-16.0); Immature Granulocytes % 0.6 %; Immature Granulocytes Absolute 0.05 #; Lymphocytes # 0.8 10*3/uL (1.4-4.0); Lymphocytes % 9.2 % (21.3-54.2); Mean Corpuscular HGB Conc 30.5 GM/DL (32-36); Mean Corpuscular Volume 96.6 FL (87-102); Mean Platelet Volume 11.1 FL (9.6-12.0); Monocytes % 5.3 % (1.7-12.7); Neutrophils % 84.4 % (38.7-73.9); Platelet Count 135 T/CUMM (130-400); Red Blood Count 3.53 MC/CUMM (3.8-5.5); Red Cell Distribution Width 18.4 % (9.3-17.3); White Blood Count 8.4 T/CUMM (4-12)
[2019-01-24 23:46] LABS: Calcium 8.3 MG/DL (8.5-10.1)
[2019-01-25] MEDS: HEPARIN 5,000 UNIT/1 ML VIAL SUBCUT SCH ×3 (05:10→21:04)
[2019-01-25 06:03] LABS: Basophils % 0.5 % (0.0-0.8); Eosinophils % 0.6 % (0.00-10.9); Hematocrit 31.9 VOL% (35.7-47.0); Hemoglobin 9.8 GM/DL (12.0-16.0); Immature Granulocytes % 0.5 %; Immature Granulocytes Absolute 0.03 #; Lymphocytes # 1.1 10*3/uL (1.4-4.0); Lymphocytes % 16.4 % (21.3-54.2); Mean Corpuscular HGB Conc 30.7 GM/DL (32-36); Mean Corpuscular Volume 96.1 FL (87-102); Monocytes % 5.8 % (1.7-12.7); Neutrophils % 76.2 % (38.7-73.9); Platelet Count 136 T/CUMM (130-400); Red Blood Count 3.32 MC/CUMM (3.8-5.5); Red Cell Distribution Width 18.3 % (9.3-17.3); White Blood Count 6.4 T/CUMM (4-12)
[2019-01-25 06:13] LABS: Calcium 7.8 MG/DL (8.5-10.1); Osmolality,Calculated 273.1 MOS/KG (273-304)
[2019-01-25] MEDS: LEVOTHYROXINE 25 MCG TABLET PO SCH (06:26)
[2019-01-25] MEDS: CALCIUM (CITRATE)/VITAMIN D 200 MG-125 UNIT TABLET PO SCH (08:39)
[2019-01-25] MEDS: FOLIC ACID 1 MG TABLET PO SCH (08:40)
[2019-01-25] MEDS: ASCORBIC ACID 500 MG TABLET PO SCH (08:40)
[2019-01-25] MEDS: PANTOPRAZOLE 40 MG TABLET PO SCH (08:40)
[2019-01-25] MEDS: MEMANTINE 5 MG TABLET PO SCH ×2 (08:41→21:04)
[2019-01-25] MEDS: DONEPEZIL 10 MG TABLET PO SCH (16:45)
[2019-01-25] MEDS: levETIRAcetam 500 MG TABLET PO SCH (21:04)
[2019-01-26 04:36] LABS: Hematocrit 32.1 VOL% (35.7-47.0); Hemoglobin 9.7 GM/DL (12.0-16.0)
[2019-01-26] MEDS: HEPARIN 5,000 UNIT/1 ML VIAL SUBCUT SCH ×3 (06:16→20:51)
[2019-01-26] MEDS: LEVOTHYROXINE 25 MCG TABLET PO SCH (06:16)
[2019-01-26] MEDS: PANTOPRAZOLE 40 MG TABLET PO SCH (10:44)
[2019-01-26] MEDS: FOLIC ACID 1 MG TABLET PO SCH (10:44)
[2019-01-26] MEDS: MEMANTINE 5 MG TABLET PO SCH ×2 (10:44→20:51)
[2019-01-26] MEDS: CALCIUM (CITRATE)/VITAMIN D 200 MG-125 UNIT TABLET PO SCH (10:44)
[2019-01-26] MEDS: levETIRAcetam 500 MG TABLET PO SCH (10:44)
[2019-01-26] MEDS: ASCORBIC ACID 500 MG TABLET PO SCH (10:45)
[2019-01-26] MEDS: DONEPEZIL 10 MG TABLET PO SCH (18:40)
[2019-01-26] MEDS ORDERED: levETIRAcetam 500 MG TABLET PO SCH (21:00)
[2019-01-27] MEDS: LEVOTHYROXINE 25 MCG TABLET PO SCH (05:16)
[2019-01-27] MEDS: HEPARIN 5,000 UNIT/1 ML VIAL SUBCUT SCH ×2 (05:22→13:35)
[2019-01-27 05:52] LABS: Albumin 1.8 G/DL (3.4-5.0); Calcium 7.9 MG/DL (8.5-10.1); Osmolality,Calculated 281.8 MOS/KG (273-304)
[2019-01-27] MEDS: CALCIUM (CITRATE)/VITAMIN D 200 MG-125 UNIT TABLET PO SCH (08:36)
[2019-01-27] MEDS: FOLIC ACID 1 MG TABLET PO SCH (08:36)
[2019-01-27] MEDS: ASCORBIC ACID 500 MG TABLET PO SCH (08:36)
[2019-01-27] MEDS: MEMANTINE 5 MG TABLET PO SCH (08:36)
[2019-01-27] MEDS: PANTOPRAZOLE 40 MG TABLET PO SCH (08:36)
[2019-01-27] MEDS ORDERED: levETIRAcetam 250 MG TABLET PO SCH (09:00)
[2019-01-27] MEDS ORDERED: HEPARIN 10,000 UNIT/10 ML VIAL IV SCH (12:30)
[2019-01-27 16:50] VITALS: BP 138/64
== END 2019-01-27 17:54 | disposition home or self-care (01) ==
LOC: N.ED 20:36 → N.EDINP 20:36 → SUATTDRO 21:50 → N.3E 23:25
PROVIDERS: ADMIT Internal Medicine; ATTEND Emergency Medicine